=== PATIENT | male | born 1980 | race Caucasian/White ===

== ENCOUNTER 2016-08-27 02:28 | Emergency (ER) | payer MEDICARE ==
[~2016-08-27] VITALS: Ht 170.2 cm; Wt 68.2 kg
[~2016-08-27 02:28] MED LIST: ATIVAN 0.50.5 MG/TAB PO; COGENTIN 1MG1 MG/TAB PO; LITHIUM 30300 MG/CAP PO; VALIUM 5MG T5 MG/TAB PO
[2016-08-27 02:44] VITALS: TEMP 97.3
[2016-08-27 03:05] LABS: BASO % 0.3 % (0.0-2.0); EOS # 0.4 (0.0-0.7); EOS % 4.2 % (0-4.0); GRAN # 4.4 (1.4-6.5); HEMATOCRIT 44.5 % (42.0-52.0); HEMOGLOBIN 15.3 g/dl (13.5-18.0); LYMPH # 3.2 (1.2-3.4); MEAN CELL VOLUME 91 fl (80.0-100.0); MEAN CORPUSCULAR HEMOGLOBIN 31 pg (27.0-31.0); MEAN CORPUSCULAR HGB CONC 34 g/dl (33.0-37.0); MEAN PLATELET VOLUME 9.4 fl (7.4-10.4); MONO # 0.6 (0.1-0.6); MONO % 7.2 % (1.7-9.3); PLATELET COUNT 296 K/mm3 (130-400); RED BLOOD COUNT 4.89 M/mm3 (4.20-5.60); REDCELL DISTRIBUTION WIDTH-CV 12.8 % (11.5-14.5); WHITE BLOOD COUNT 8.6 K/mm3 (4.8-10.8)
[2016-08-27 03:18] LABS: ADJUSTED CALCIUM 9.1 mg/dL (8.4-10.2); ALANINE AMINOTRANSFERASE 38 U/L (21-72); ALBUMIN 4.7 gm/dL (3.5-5.0); ALKALINE PHOSPHATASE 78 U/L (50-136); ANION GAP 14 mmol/L (7-16); BILIRUBIN,TOTAL 0.5 mg/dL (0.0-1.0); BLOOD UREA NITROGEN 11 mg/dL (9-20); CALCIUM 9.7 mg/dL (8.4-10.2); CARBON DIOXIDE 26 mmol/L (22-30); CHLORIDE 110 mmol/L (98-107); GLUCOSE 81 mg/dL (74-106); POTASSIUM 4.4 mmol/L (3.4-5.0); SODIUM 150 mmol/L (137-145); TOTAL PROTEIN 7.9 gm/dL (6.4-8.2)
[2016-08-27 03:19] LABS: ACETAMINOPHEN < 10 ug/mL (10-30); SALICYLATE < 1.0 mg/dL
[2016-08-27 03:24] LABS: AMPHETAMINE URINE NEGATIVE; BARBITURATES URINE NEGATIVE; BENZODIAZEPINES URINE NEGATIVE; BUPRENORPHINE URINE NEGATIVE; METHADONE URINE NEGATIVE; OPIATES URINE NEGATIVE; OXYCODONE URINE NEGATIVE; PHENCYCLIDINE URINE NEGATIVE; PROPOXYPHENE URINE NEGATIVE; THC CANNABINOIDS URINE POSITIVE
[2016-08-27 14:13] VITALS: BP 125/75
[2016-08-27 15:00] VITALS: PULSE 67
== END 2016-08-27 15:15 ==
LOC: COL.ER 02:28
PROVIDERS: Emergency Medicine
DX: F10.129 Alcohol abuse with intoxication, unspecified (principal); Y90.6 Blood alcohol level of 120-199 mg/100 ml; R45.851 Suicidal ideations
CPT/HCPCS: J7030

== ENCOUNTER 2016-09-06 23:16 | Emergency (ER) | payer MEDICARE ==
[~2016-09-06] VITALS: Ht 172.7 cm; Wt 68.2 kg
[2016-09-06 23:18] VITALS: BP 176/90; TEMP 98.3
[2016-09-06 23:55] VITALS: PULSE 98
== END 2016-09-06 23:45 | disposition home or self-care (01) ==
LOC: COL.ER 23:16
DX: S09.90XA Unspecified injury of head, initial encounter (principal); S01.112A Laceration without foreign body of left eyelid and periocular area, initial encounter; W18.30XA Fall on same level, unspecified, initial encounter; Y92.480 Sidewalk as the place of occurrence of the external cause; R45.1 Restlessness and agitation; Z53.21 Procedure and treatment not carried out due to patient leaving prior to being seen by health care provider

== ENCOUNTER 2017-03-16 09:55 | Emergency (ER) | payer MEDICARE ==
[~2017-03-16] VITALS: Ht 170.2 cm; Wt 63.6 kg
[2017-03-16 09:56] VITALS: BP 140/86; PULSE 79; TEMP 97.9
== END 2017-03-16 11:05 | disposition home or self-care (01) ==
LOC: COL.ER 09:55
DX: S09.90XA Unspecified injury of head, initial encounter (principal); S00.03XA Contusion of scalp, initial encounter; F10.129 Alcohol abuse with intoxication, unspecified; F17.290 Nicotine dependence, other tobacco product, uncomplicated; Y00.XXXA Assault by blunt object, initial encounter; Y92.009 Unspecified place in unspecified non-institutional (private) residence as the place of occurrence of the external cause

== ENCOUNTER 2017-03-16 16:03 | Emergency (ER) | payer MEDICARE, MEDICAID ==
[~2017-03-16] VITALS: Ht 170.2 cm; Wt 59.1 kg
[2017-03-16 16:44] VITALS: BP 142/83; PULSE 96; TEMP 98
== END 2017-03-16 16:45 | disposition home or self-care (01) ==
LOC: COL.ER 16:03
DX: S00.11XA Contusion of right eyelid and periocular area, initial encounter (principal); F17.290 Nicotine dependence, other tobacco product, uncomplicated; Y00.XXXA Assault by blunt object, initial encounter; Y92.009 Unspecified place in unspecified non-institutional (private) residence as the place of occurrence of the external cause

== ENCOUNTER 2017-04-03 15:10 | Emergency (ER) | payer MEDICARE, MEDICAID ==
[~2017-04-03] VITALS: Ht 170.2 cm; Wt 63.6 kg
[2017-04-03 15:11] VITALS: BP 133/94; TEMP 97.9
[2017-04-03] MEDS ORDERED: NORCO 325 MG-51 TAB PO (16:31)
[2017-04-03 17:02] VITALS: PULSE 88
== END 2017-04-03 17:04 | disposition home or self-care (01) ==
LOC: COL.ER 15:10
DX: S06.9X9A Unspecified intracranial injury with loss of consciousness of unspecified duration, initial encounter (principal); S01.81XA Laceration without foreign body of other part of head, initial encounter; S42.032A Displaced fracture of lateral end of left clavicle, initial encounter for closed fracture; S22.32XA Fracture of one rib, left side, initial encounter for closed fracture; S60.511A Abrasion of right hand, initial encounter; F31.9 Bipolar disorder, unspecified; F10.10 Alcohol abuse, uncomplicated; F17.290 Nicotine dependence, other tobacco product, uncomplicated; V19.49XA Pedal cycle driver injured in collision with other motor vehicles in traffic accident, initial encounter; Y93.I9 Activity, other involving external motion; Y92.410 Unspecified street and highway as the place of occurrence of the external cause
CPT/HCPCS: J1885

== ENCOUNTER 2017-04-27 19:24 | Emergency (ER) | payer MEDICARE, MEDICAID ==
[~2017-04-27] VITALS: Ht 170.2 cm; Wt 68.2 kg
[~2017-04-27 19:24] MED LIST changes: +NORCO 325 MG-51 TAB PO
[2017-04-27 19:34] VITALS: BP 118/76; PULSE 104; TEMP 98.5
[2017-04-27] MEDS ORDERED: NORCO 325 MG-51 TAB PO (20:09)
== END 2017-04-27 20:26 | disposition home or self-care (01) ==
LOC: COL.ER 19:24
DX: S42.002A Fracture of unspecified part of left clavicle, initial encounter for closed fracture (principal); F17.290 Nicotine dependence, other tobacco product, uncomplicated; W01.10XA Fall on same level from slipping, tripping and stumbling with subsequent striking against unspecified object, initial encounter; Y92.009 Unspecified place in unspecified non-institutional (private) residence as the place of occurrence of the external cause